=== PATIENT | female | born 1960 | race Caucasian/White ===

== ENCOUNTER 2022-05-17 07:47 | Day surgery (SDC) | payer OTHER ==
[2022-05-17] MEDS ORDERED: lidocaine 1% 20 ML MDV ONE ×2 (08:23→08:24)
[2022-05-17] MEDS ORDERED: LACTATED RINGERS 1,000 ML IV ONE ×2 (08:23→12:12)
[2022-05-17] MEDS ORDERED: LIDOCAINE 1%-EPI 1:100000 20 ML MDV ONE (08:24)
[2022-05-17] MEDS ORDERED: CEFAZOLIN SODIUM IN 0.9 % NACL 2 GM/50 ML BAG IV ONE (08:29)
[2022-05-17] MEDS ORDERED: LIDOCAINE 2%-EPI 1:100000 20 ML MDV ONE (09:07)
[2022-05-17] MEDS ORDERED: BUPIVACAINE 0.5% PF 30 ML VIAL ONE (09:07)
[2022-05-17] MEDS ORDERED: MIDAZOLAM 2 MG/2 ML VIAL ONE (11:05)
[2022-05-17] MEDS ORDERED: PROPOFOL 200 MG/20 ML VIAL IVP ONE (11:06)
[2022-05-17] MEDS ORDERED: fentaNYL 100 MCG/2 ML VIAL ONE (11:08)
[2022-05-17] MEDS ORDERED: LIDOCAINE 1%-EPI 1:100000 30 ML MDV SUBQ ONE ×2 (11:32)
[2022-05-17] MEDS ORDERED: BUPIVACAINE 0.5% PF 30 ML VIAL SUBQ ONE ×3 (11:32)
[2022-05-17] MEDS ORDERED: MORPHINE 2 MG/ML CARPUJECT IVP PRN ×2 (11:33→11:38)
[2022-05-17] MEDS ORDERED: NALOXONE 0.4 MG/ML VIAL IVP PRN ×2 (11:33→11:38)
[2022-05-17] MEDS ORDERED: ACETAMINOPHEN 1,000 MG/100 ML 1,000 MG/100 ML BAG IV ONE (11:33)
[2022-05-17] MEDS ORDERED: METOCLOPRAMIDE 10 MG/2 ML VIAL IVP PRN ×2 (11:33→11:38)
[2022-05-17] MEDS ORDERED: ATROPINE ABBOJECT 1 MG/10 ML SYRINGE IVP PRN ×2 (11:33→11:38)
[2022-05-17] MEDS ORDERED: ePHEDrine 50 MG/ML VIAL IVP PRN ×2 (11:33→11:38)
[2022-05-17] MEDS ORDERED: fentaNYL 100 MCG/2 ML VIAL IVP PRN ×2 (11:33→11:38)
[2022-05-17] MEDS ORDERED: ONDANSETRON 4 MG/2 ML VIAL IVP PRN ×3 (11:33→12:03)
[2022-05-17] MEDS ORDERED: HYDROmorphone 0.5 MG/0.5 ML SYRINGE IVP PRN ×2 (11:33→11:38)
--- NOTE | 2022-05-17 11:37 | ANESTHESIA ---
Pre-Anesthesia VS, & Labs - Diagnosis L breast CA - Procedure L breast lumpectomy Vital Signs: Temp Pulse Resp BP Pulse Ox 36.6 C 72 19 141/85 H 96 05/17/22 08:08 05/17/22 08:08 05/17/22 08:08 05/17/22 08:08 05/17/22 08:08 Height: 5 ft 3 in Weight (kg): 103.4 kg Body Mass Index: 40.4 BMI Classification: Morbidly Obese - NPO >8 hours - Is Patient ?: No Home Medications and Allergies Home Medications: Ambulatory Orders Cholecalciferol (Vitamin D3) [Vitamin D3] 50 mcg PO DAILY 05/07/22 Losartan [Cozaar] 50 mg PO DAILY 05/07/22 Multivitamin 1 each PO DAILY 05/07/22 Turmeric 400 mg PO DAILY 05/07/22 hydroCHLOROthiazide [Hydrodiuril] 25 mg PO DAILY 05/07/22 Cholecalciferol (Vitamin D3) [Vitamin D3] 50 mcg PO DAILY 05/07/22 Losartan [Cozaar] 50 mg PO DAILY 05/07/22 Multivitamin 1 each PO DAILY 05/07/22 Turmeric 400 mg PO DAILY 05/07/22 hydroCHLOROthiazide [Hydrodiuril] 25 mg PO DAILY 05/07/22 Allergies/Adverse Reactions: Allergies Allergy/AdvReac Type Severity Reaction Status Date / Time No Known Drug Allergies Allergy Verified 05/07/22 08:01 Anes History & Medical History - Anesthetic History Anesthesia Complications: reports: No previous complications Family history of Anesthesia Complications: Denies Family history of Malignant Hyperthermia: Denies - Medical History Cardiovascular: reports: Hypertension Pulmonary: reports: Sleep apnea, CPAP use Gastrointestinal: reports: None Urinary: reports: None Musculoskeletal: reports: Osteoarthritis Endocrine/Autoimmune: reports: None Skin: reports: Other History of Cancer?: Yes - Surgical History General: reports: Colonoscopy Gynecologic: reports: Breast reduction Dermatologic: reports: Skin cancer surgery Exam General: Alert, Oriented x3, Cooperative Dental: WNL Mouth Openin Fingerbreadth Neck Mobility: Normal Mallampati classification: III Thyromental Distance: less than 4 cm Respiratory: Lungs clear Cardiovascular: Regular rate Plan Anesthesia Type: General Consent for Procedure(s) Verified and Reviewed: Yes Code Status: Attempt Resuscitation ASA classification: 3-Severe systemic disease Is this case an emergency?: No
[2022-05-17] MEDS ORDERED: LACTATED RINGERS 1,000 ML IV SCH ×2 (12:00)
--- NOTE | 2022-05-17 12:01 | OPERATIVE REPORT ---
Operative Report - General Procedure Date: 05/17/22 Planned Procedure: Left breast lumpectomy following needle localization Pre-Op Diagnosis: Biopsy-proven left breast ADH Procedure Performed: Left breast lumpectomy following needle localization Post Op Diagnosis: Biopsy-proven left breast ADH - Procedure Note Primary Surgeon: Paul Anesthesia Provider: MP Burger Anesthesia Technique: General LMA, Local Pathology: Specimen oriented and submitted to pathology in formalin Estimated Blood Loss (mL): 10 Indications: Biopsy-proven ADH Findings: Clip and wire as well as visible lesion contained within the specimen. Complications: None apparent - Other Other Information/Narrative: After obtaining informed consent, the patient was brought to the operating room and placed in the supine position on the operating table. Following successful induction of general endotracheal anesthesia, appropriate padding of all bony prominences, and placement of appropriate monitors, the left breast was prepped and draped in the standard surgical fashion. A timeout was held per scope protocol. All elements of the surgical safety checklist were followed before, during, and after the procedure. The position of the wire within the Left breast was noted on mammogram. Measurements were made from the center of the mass and then marked on the skin as guides for approximate margins. The area over the mass and in the periareolar region was infiltrated with a mixture of local anesthetics to create to field block. A periareolar incision was then created at the superior aspect of the left nipple areola complex. The entire lesion as well as the accompanying wire was then sharply dissected free from surrounding breast tissue and subcutaneous tissue and delivered into the field.I It was marked with a short stitch superior, long stitch lateral, and double stitch anterior. It was finally liberated sharply and delivered into the field. The wound was checked for hemostasis. It was irrigated again with warm water. The wound was then closed in 2 layers with Vicryl and Monocryl sutures. All sponge, needle, and instrument counts were correct at the conclusion of the case. The patient was allowed to awaken from anesthesia without difficulty and taken to the postanesthesia care unit in good condition.
[2022-05-17] MEDS ORDERED: IBUPROFEN 600 MG TABLET PO PRN (12:03)
[2022-05-17] MEDS ORDERED: oxyCODONE 5 MG TABLET PO PRN (12:03)
[2022-05-17] MEDS ORDERED: ACETAMINOPHEN 325 MG TABLET PO PRN (12:03)
[2022-05-17] MEDS ORDERED: ONDANSETRON 4 MG/2 ML VIAL ONE (12:21)
[2022-05-17 13:27] VITALS: BP 127/78
[2022-05-17] MEDS ORDERED: lidocaine 1% 20 ML MDV SUBQ ONE (14:45)
--- NOTE | 2022-05-17 15:54 | ANESTHESIA POST OP EVALUATION ---
Anesthesia Post Eval - Post Anesthesia Eval Vitals: Last Vital Signs Temp 36.6 C 05/17/22 13:27 Pulse 69 05/17/22 13:27 Resp 16 05/17/22 13:27 BP 127/78 05/17/22 13:27 Pulse Ox 97 05/17/22 13:27 CV Function Including HR & BP: Stable Pain Control: Satisfactory Nausea & Vomiting: Negative Mental Status: Baseline Respiratory Status: Airway Patent Hydration Status: Satisfactory Anesthesia Complications: None
--- NOTE | 2022-05-19 08:13 | Mammography Report ---
SPECIMEN LEFT BREAST: 05/17/2022 CLINICAL: Left breast specimen. Mammogram dated 03/04/2022. A surgical specimen was imaged for the mass located in the left breast at 4 o'clock anterior depth. This was described on the previous mammography and ultrasound reports. IMPRESSION: SPECIMEN The imaged specimen includes the lesion, a biopsy clip, and the distal portion of the localization wi re. The specimen shows characteristics of the findings. This exam was interpreted at Station ID: [id number]. Ortiz Delgado M.D. aty/:05/18/2022 17:18:52 BI-RADS CATEGORY: () - Unspecified - other recall n/a LATERALITY: (B)
--- NOTE | 2022-05-19 08:13 | Mammography Report ---
DIGITAL MAMMOGRAPHY GUIDED WIRE LOCALIZATION LEFT BREAST WITH POST MAMMOGRAPHIC IMAGIN05/17/2022 CLINICAL: Pre-op WireLoc with Mammo Guidance. No prior exams were available for correlation. A wire localization using digital mammography guidance was performed for the mass located in the left breast at 4 o'clock anterior depth. This was described on the previous mammography and ultrasound r eports. The skin was prepped in the usual manner. Local anesthetic was administered to the access s ite. The localization was approached from the lateral aspect. A wire was inserted into the targeted area under digital mammography guidance. Post placement mammographic imaging was obtained. IMPRESSION: WIRE LOCALIZATION Wire localization for the mass and biopsy marker in the left breast at 4 o'clock anterior depth was s uccessful. A surgical excision is scheduled to follow this exam. This exam was interpreted at Station ID: [id number]. Ortiz Delgado M.D. aty/:05/18/2022 17:16:54 BI-RADS CATEGORY: () - Unspecified - other recall n/a LATERALITY: (B)
== END 2022-05-17 07:48 | disposition home or self-care (01) ==
LOC: DI 07:47 → SDS 07:48
PROVIDERS: ATTEND Surgery
PROC: 0HBU0ZZ Excision of Left Breast, Open Approach (ICD-10-PCS; principal; 2022-05-17 10:45)
DX: N60.92 Unspecified benign mammary dysplasia of left breast (principal); N60.12 Diffuse cystic mastopathy of left breast; G47.30 Sleep apnea, unspecified; E66.01 Morbid (severe) obesity due to excess calories; Z68.41 Body mass index [BMI] 40.0-44.9, adult; Z79.899 Other long term (current) drug therapy; Z85.828 Personal history of other malignant neoplasm of skin
CPT/HCPCS: 19281; 19301; 76098; J0131; J0690; J7120

== ENCOUNTER 2023-12-16 09:05 | Outpatient (CLI) | payer OTHER | END 2023-12-16 09:06 | disposition home or self-care (01) | LOC: DI 09:05 | PROVIDERS: ATTEND Nurse Practitioner Family | DX: R00.2 Palpitations (principal) | CPT/HCPCS: 93307 ==